=== PATIENT | male | born 1985 | race Caucasian/White ===

== ENCOUNTER 2017-04-07 23:10 | Emergency (ER) | payer OTHER ==
[2017-04-07] MEDS ORDERED: Metoclopramide 10 MG/2 ML SDV IVPUSH ONE (23:19)
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
[2017-04-07] MEDS ORDERED: Iopamidol 612 MG/ML 150 ML Bottle IVPUSH ONE (23:22)
[2017-04-07] MEDS ORDERED: Sodium Chloride 0.9% 1,000 ML IV SCH (23:30)
[2017-04-07] MEDS: Sodium Chloride 0.9% 10 ML Syringe FLUSH PRN ×2 (23:33→23:41)
[2017-04-07 23:43] VITALS: BP 145/75
[2017-04-08] MEDS ORDERED: Acetaminophen 325 MG Tab PO ONE (00:04)
--- NOTE | 2017-04-08 17:53 | CT ---
CT lumbar spine Technique: Multiple axial sections were obtained to the lumbar spine. Reconstructed sagittal and coronal images were reviewed. Comparison: No previous exam is available. Findings: Vertebral body heights and disc spaces are preserved. Vertebral bodies and posterior arches are intact. No fracture is seen. No abnormal subluxation is seen. No traumatic disc herniation is identified. No bony central or bony neural foraminal stenosis is seen. Impression: 1. Nothing acute is identified on CT study of the lumbar spine. Diagnostic code #1 Agree with preliminary report issued by [facility] ([facility] preliminary report dictated on 04/08/17, 12:57 AM Central Time)
--- NOTE | 2017-04-08 17:53 | CT ---
Head CT Technique: Multiple axial sections through the brain were obtained. Intravenous contrast was not utilized. Comparison: No previous intracranial imaging is available. Findings: Ventricles along with basal cisterns and sulci over the convexities are within normal limits for the patient's age. No abnormal parenchymal densities are seen. No evidence of intracranial hemorrhage. No midline shift or mass effect is seen. Bone window settings were reviewed which show minimal mucosal thickening within the frontal sinuses. Nasal septal deviation is seen. No acute calvarial abnormality is seen. Impression: 1. Incidental sinus findings. Nothing acute is identified on noncontrast head CT study. Diagnostic code #2 I agree with preliminary report issued by [employer] ([facility] preliminary report dictated on 04/08/17, 12:54 AM Central Time)
--- NOTE | 2017-04-08 17:55 | CT ---
CT cervical spine Technique: Multiple axial sections were obtained from above C1 inferiorly to the bottom of T2. Reconstructed sagittal and coronal images were reviewed. Comparison: No previous cervical spine imaging. Findings: Vertebral body heights and disc spaces are preserved. Posterior skull base is intact. Vertebral bodies and posterior arches are intact with no fracture being seen. No bony central canal stenosis or bony neural foraminal stenosis is seen. No abnormal subluxation is seen on the reconstructed sagittal images. Impression: 1. Nothing acute is identified on CT study of the cervical spine. Diagnostic code #1 Agree with preliminary report issued by [facility] ([facility] preliminary report dictated on 04/08/17, 12:55 AM Central Time)
--- NOTE | 2017-04-08 17:55 | CT ---
CT chest Technique: Multiple axial sections through the chest were obtained. Intravenous contrast was utilized. Comparison: No previous chest imaging. Findings: Mediastinum and hilar regions appear within normal limits. No pericardial effusion is seen. No axillary adenopathy is identified. Minimal dependent atelectasis is incidentally noted within both posterior lungs. Lungs otherwise are clear. No pulmonary contusion is seen. No pleural effusions or pneumothorax is seen. Bone window settings were reviewed which show the sternum to appear intact on the reconstructed sagittal images. No rib fracture is appreciated. Impression: 1. Incidental finding. Nothing acute is appreciated on CT study of the chest. Diagnostic code #2 I agree with preliminary report issued by [facility] ([employer] preliminary report dictated on 04/08/17, 1:06 AM Central Time) CT abdomen and pelvis Technique: Multiple axial sections were obtained from above the dome of the diaphragm inferiorly through the pubic symphysis. Delayed images were also obtained through the abdomen and pelvis. Intravenous contrast was utilized. No oral contrast has been given. Findings: Artifact is identified from external metallic device within the upper abdomen which diminishes some details of the liver and spleen. No discrete abnormality is appreciated within the liver or spleen. Adrenal glands show no nodule. Kidneys show symmetric contrast enhancement. Delayed images show contrast excretion into the ureters as well as contrast being seen within the bladder with no contrast extravasation. Pancreas appears within normal limits. Gallbladder shows no calcified gallstones. Aorta shows no aneurysmal dilatation. No retroperitoneal adenopathy or mesenteric abnormalities are seen. No pelvic mass or adenopathy is seen. No free fluid or inflammatory change is seen. Impression: 1. Slightly diminished details within the liver and spleen due to metallic artifact located outside the patient. 2. Nothing acute is appreciated. Diagnostic code #2 I agree with preliminary report issued by [facility] ([employer] preliminary report dictated on 04/08/17, 1:15 AM Central Time))
--- NOTE | 2017-04-08 17:55 | CT ---
CT thoracic spine Technique: Multiple axial sections were obtained through the thoracic spine. Reconstructed sagittal and coronal images were reviewed. Findings: Small bony density is seen off the tip of the spinous process of T2. This appears to be old. Mild disc space narrowing is noted at L1-L2 which is likely developmental. Other disc spaces are preserved. Vertebral body heights are maintained. No bony central or bony neural foraminal stenosis is seen. No fracture is seen. No abnormal subluxation is seen on the reconstructed sagittal images. Impression: 1. Incidental findings as noted above. Nothing acute is identified on CT study of the thoracic spine. Diagnostic code #2 I agree with preliminary report issued by [facility] ([facility] preliminary report dictated on 04/08/17, 1:19 AM Central Time)
== END 2017-04-08 00:36 | disposition home or self-care (01) ==
LOC: JD.ED 23:10
DX: S06.0X0A Concussion without loss of consciousness, initial encounter (principal); S29.019A Strain of muscle and tendon of unspecified wall of thorax, initial encounter; V89.2XXA Person injured in unspecified motor-vehicle accident, traffic, initial encounter
CPT/HCPCS: 36415; 70450; 71260; 72125; 72128; 72131; 74177; 80053; 82150; 85025; 85610; 85730; 93005; 96361; 96374; 99285; A9270; G0480; J2765; J7040; J7050; Q9967